=== PATIENT | male | born 1985 | race Caucasian/White ===

== ENCOUNTER 2019-09-04 11:05 | Emergency (ER) | payer MEDICAID ==
[~2019-09-04] VITALS: Ht 182.9 cm; Wt 68.2 kg
[2019-09-04 11:06] VITALS: BP 131/76
== END 2019-09-04 12:14 | disposition home or self-care (01) ==
LOC: ER 11:06
DX: M25.531 Pain in right wrist (principal); R22.31 Localized swelling, mass and lump, right upper limb; X50.9XXA Other and unspecified overexertion or strenuous movements or postures, initial encounter; Y93.89 Activity, other specified; Y92.89 Other specified places as the place of occurrence of the external cause; Y99.8 Other external cause status
CPT/HCPCS: 73130; 99283

== ENCOUNTER 2023-12-09 14:19 | Emergency (ER) | payer MEDICAID ==
[~2023-12-09] VITALS: Ht 185.4 cm; Wt 62.0 kg
[2023-12-09] MEDS ORDERED: CLOT10TR5 PO (15:02)
[2023-12-09 15:30] VITALS: BP 122/80; PULSE 72; RESP 16; TEMP 98; O2SAT 99
== END 2023-12-09 15:31 | disposition home or self-care (01) ==
LOC: ER 14:19
DX: B37.0 Candidal stomatitis (principal)
CPT/HCPCS: 99283

== ENCOUNTER 2023-12-14 17:03 | Emergency (ER) | payer MEDICAID ==
[~2023-12-14] VITALS: Ht 185.4 cm; Wt 60.8 kg
[~2023-12-14 17:03] MED LIST: CLOT10TR5 PO
[2023-12-14 19:16] LABS: BASOPHILS % (AUTO) 0.3 % (0-1); EOSINOPHILS # (AUTO) 0.1 X10'3 (0-0.9); HEMATOCRIT 45.9 % (42.0-52.0); HEMOGLOBIN 15.3 g/dl (14.0-17.9); LYMPHOCYTES # (AUTO) 1.6 X10'3 (1.1-4.8); LYMPHOCYTES % (AUTO) 24.3 % (21-51); MEAN CORPUSCULAR HEMOGLOBIN 30.2 PG (27.0-31.0); MEAN CORPUSCULAR HGB CONC 33.4 g/dL (33.0-36.5); MEAN CORPUSCULAR VOLUME 90.6 FL (78-98); MONOCYTES # (AUTO) 0.7 X10'3 (0-0.9); NEUTROPHILS # (AUTO) 4.2 X10'3 (1.8-7.7); NEUTROPHILS % (AUTO) 63.4 % (42-75); PLATELET COUNT 268 X10'3 (140-440); RED BLOOD COUNT 5.06 X10'6 (4.70-6.10); RED CELL DISTRIBUTION WIDTH 13.5 % (11.5-14.5); WHITE BLOOD COUNT 6.7 X10'3 (4.5-11.0)
[2023-12-14 19:32] LABS: ALANINE AMINOTRANSFERASE 26 U/L (12-78); ALBUMIN 4.6 G/DL (3.4-5.0); ALBUMIN/GLOBULIN RATIO 1.4 (1.1-1.5); ALKALINE PHOSPHATASE 49 IU/L (46-116); ANION GAP 11 (8-16); ASPARTATE AMINO TRANSFERASE 15 U/L (10-37); BILIRUBIN,DIRECT 0.2 MG/DL (0-0.3); BILIRUBIN,TOTAL 0.5 MG/DL (0.1-1.0); BLOOD UREA NITROGEN 12 MG/DL (7-18); BUN/CREATININE RATIO 12.8 (10.0-20.0); CALCIUM 9.4 MG/DL (8.5-10.1); CHLORIDE 103 MMOL/L (99-107); CREATININE 0.94 MG/DL (0.60-1.10); GLUCOSE 104 MG/DL (70-104); POTASSIUM 4.1 MMOL/L (3.5-5.1); SODIUM 141 MMOL/L (135-145); TOTAL CARBON DIOXIDE 27.4 MMOL/L (24-32); eCRCL 93 ML/MIN; eGFR 90 ML/MIN
[2023-12-14 19:43] LABS: TOTAL CELLS COUNTED 100
[2023-12-14 19:45] LABS: BURR CELLS FEW; ELLIPTOCYTES FEW; PLATELET ESTIMATE NORMAL
[2023-12-14 19:46] LABS: ANISOCYTOSIS FEW; SCHISTOCYTES FEW
[2023-12-14 20:12] VITALS: BP 139/95; PULSE 64; RESP 16; TEMP 98.5; O2SAT 98
== END 2023-12-14 20:13 | disposition home or self-care (01) ==
LOC: ER 17:04
DX: B37.0 Candidal stomatitis (principal); R59.0 Localized enlarged lymph nodes; Z79.2 Long term (current) use of antibiotics
CPT/HCPCS: 36415; 71045; 80048; 80076; 85007; 85025; 99284

== ENCOUNTER 2024-07-04 12:44 | Emergency (ER) | payer MEDICAID ==
[~2024-07-04] VITALS: Ht 185.4 cm; Wt 60.9 kg
[2024-07-04 12:48] VITALS: BP 130/70; PULSE 90; RESP 16; O2SAT 98
[2024-07-04 13:47] VITALS: TEMP 98.4
== END 2024-07-04 13:49 | disposition home or self-care (01) ==
LOC: ER 12:44
DX: F41.9 Anxiety disorder, unspecified (principal); K08.89 Other specified disorders of teeth and supporting structures
CPT/HCPCS: 99282